=== PATIENT | female | born 1995 | race Caucasian/White ===

== ENCOUNTER 2018-07-15 20:52 | Emergency (ER) | payer OTHER ==
[2018-07-15] MEDS ORDERED: Oseltamivir 75 MG CAP ONE (23:14)
[2018-07-15] MEDS ORDERED: Acetaminophen 500 MG TAB ONE (23:14)
== END 2018-07-15 23:40 | disposition home or self-care (01) ==
LOC: MADERS 20:52
DX: J11.1 Influenza due to unidentified influenza virus with other respiratory manifestations (principal)
CPT/HCPCS: 87081; 87430; 87804; 99283

== ENCOUNTER 2019-02-14 18:48 | Emergency (ER) | payer OTHER ==
[2019-02-14 19:16] LABS: Bilirubin Negative (Negative); Blood, Urine Negative (Negative); Clarity Clear (Clear); Glucose, Urine (Dipstick) Negative (Negative); Leukocyte Negative (Negative); Nitrite Negative (Negative); Protein, Urine (Dipstick) Negative (Neg-Trace); Urobilinogen 0.2 mg/dL (Less than 2)
[2019-02-14 19:17] LABS: Pregnancy Test - Urine (BHCG) POSITIVE (Negative); Pregu Control Background? CLEAR/WHITE (CLR/WHITE); Pregu Control Bar Appear? YES (CONTROL BAR)
[2019-02-14 20:00] LABS: #Basophils 0.1 thou/uL (0.0-0.2); #Eosinphils 0.3 thou/uL (0.0-0.7); #Lymphocytes 1.7 thou/uL (1.20-3.40); #Monocytes 0.8 thou/uL (0.11-0.59); #Neutrophils 5.9 thou/uL (1.40-6.50); %Basophils 0.6 % (0.0-1.0); %Eosinophils 3.3 % (0.0-10.0); %Lymphocytes 19.1 % (21.0-51.0); %Monocytes 9.4 % (0.0-10.0); %Neutrophils 67.5 % (42.0-75.0); Mean Corpuscular HGB CONC 33.6 g/dL (32.0-36.0); Mean Corpuscular Hemoglobin 30.7 pg (27.0-31.0); Mean Corpuscular Volume 91.2 fL (78.0-98.0); Platelet Count 215 thou/uL (130-400); RBC Distribution Width 10.4 % (11.5-14.5); Red Blood Cell (RBC) Count 4.23 mill/uL (4.20-5.40); White Blood Cell (WBC) Count 8.8 thou/uL (4.8-10.8)
[2019-02-14] MEDS ORDERED: Acetaminophen 500 MG TAB ONE (20:39)
[2019-02-16 20:11] LABS: Chlamydia by PCR Not Detected (NotDetected); GC by PCR Not Detected (NotDetected)
== END 2019-02-14 20:47 | disposition short-term general hospital (02) ==
LOC: MADERS 18:48
DX: O99.89 Other specified diseases and conditions complicating pregnancy, childbirth and the puerperium (principal); R10.31 Right lower quadrant pain; Z3A.01 Less than 8 weeks gestation of pregnancy
CPT/HCPCS: 81003; 81025; 84702; 85025; 86900; 86901; 87480; 87491; 87510; 87591; 87660; 99284

== ENCOUNTER 2019-06-14 18:22 | Emergency (ER) | payer OTHER | END 2019-06-14 20:06 | disposition home or self-care (01) | LOC: MADERS 18:22 | DX: O99.89 Other specified diseases and conditions complicating pregnancy, childbirth and the puerperium (principal); M79.81 Nontraumatic hematoma of soft tissue; O99.341 Other mental disorders complicating pregnancy, first trimester; F32.9 Major depressive disorder, single episode, unspecified; Z79.899 Other long term (current) drug therapy | CPT/HCPCS: 99283 ==

== ENCOUNTER 2019-09-28 01:23 | Emergency (ER) | payer OTHER ==
[2019-09-28] MEDS ORDERED: AMOXicillin 250 MG CAP ONE (02:15)
== END 2019-09-28 02:22 | disposition home or self-care (01) ==
LOC: MADERS 01:23
DX: O99.612 Diseases of the digestive system complicating pregnancy, second trimester (principal); K02.9 Dental caries, unspecified; O99.342 Other mental disorders complicating pregnancy, second trimester; F32.9 Major depressive disorder, single episode, unspecified; Z3A.22 22 weeks gestation of pregnancy
CPT/HCPCS: 99282

== ENCOUNTER 2019-11-11 13:02 | Emergency (ER) | payer OTHER | END 2019-11-11 14:22 | disposition home or self-care (01) | LOC: MADERS 13:02 | DX: Z04.1 Encounter for examination and observation following transport accident (principal); O99.343 Other mental disorders complicating pregnancy, third trimester; F32.9 Major depressive disorder, single episode, unspecified; Z3A.28 28 weeks gestation of pregnancy; Z79.899 Other long term (current) drug therapy; V49.40XA Driver injured in collision with unspecified motor vehicles in traffic accident, initial encounter | CPT/HCPCS: 99283 ==

== ENCOUNTER 2019-12-29 16:51 | Emergency (ER) | payer OTHER | END 2019-12-29 17:31 | disposition home or self-care (01) | LOC: MADERS 16:51 | DX: K02.9 Dental caries, unspecified (principal); D68.9 Coagulation defect, unspecified; F32.9 Major depressive disorder, single episode, unspecified; Z79.01 Long term (current) use of anticoagulants | CPT/HCPCS: 99282 ==

== ENCOUNTER 2020-08-24 10:54 | Emergency (ER) | payer OTHER ==
[2020-08-24] MEDS ORDERED: Ondansetron ODT 4 MG TAB ONE (12:00)
[2020-08-24] MEDS ORDERED: hydrOXYzine 25 MG TAB ONE (12:00)
== END 2020-08-24 12:36 | disposition home or self-care (01) ==
LOC: MADERS 10:54
DX: H65.03 Acute serous otitis media, bilateral (principal); R11.2 Nausea with vomiting, unspecified
CPT/HCPCS: 96372; 99282; J1040; Q0162

== ENCOUNTER 2021-06-22 18:51 | Emergency (ER) | payer OTHER ==
[2021-06-22] MEDS ORDERED: predniSONE 20 MG TAB ONE (19:29)
== END 2021-06-22 20:00 | disposition home or self-care (01) ==
LOC: MADERS 18:51
DX: H93.12 Tinnitus, left ear (principal); R42 Dizziness and giddiness; I10 Essential (primary) hypertension
CPT/HCPCS: 99283; J7512

== ENCOUNTER 2022-04-09 08:33 | Emergency (ER) | payer OTHER ==
[2022-04-09] MEDS ORDERED: predniSONE 20 MG TAB ONE (09:00)
[2022-04-09] MEDS ORDERED: diphenhydrAMINE 25 MG CAP ONE ×2 (09:00→09:03)
== END 2022-04-09 09:12 | disposition home or self-care (01) ==
LOC: MADERS 08:33
DX: L50.9 Urticaria, unspecified (principal)
CPT/HCPCS: 99282; J7512

== ENCOUNTER 2022-09-13 16:26 | Emergency (ER) | payer OTHER | END 2022-09-13 17:15 | disposition home or self-care (01) | LOC: MADERS 16:26 | DX: K04.7 Periapical abscess without sinus (principal); Z79.899 Other long term (current) drug therapy | CPT/HCPCS: 99282 ==

== ENCOUNTER 2022-11-17 10:30 | Emergency (ER) | payer OTHER | END 2022-11-17 11:10 | disposition home or self-care (01) | LOC: MADERS 10:30 | DX: O99.512 Diseases of the respiratory system complicating pregnancy, second trimester (principal); J30.2 Other seasonal allergic rhinitis; O99.891 Other specified diseases and conditions complicating pregnancy; H93.8X2 Other specified disorders of left ear; Z3A.24 24 weeks gestation of pregnancy | CPT/HCPCS: 99282 ==

== ENCOUNTER 2022-12-14 14:12 | Emergency (ER) | payer OTHER ==
[2022-12-14] MEDS ORDERED: Sodium Chloride 0.9% 1,000 ML ONE (15:25)
[2022-12-14 15:31] LABS: #Eosinphils 0.1 thou/uL (0.0-0.7); #Lymphocytes 1.5 thou/uL (1.20-3.40); #Monocytes 0.7 thou/uL (0.11-0.59); #Neutrophils 8.9 thou/uL (1.40-6.50); %Basophils 0.3 % (0.0-1.0); %Eosinophils 1.1 % (0.0-10.0); %Lymphocytes 13.5 % (21.0-51.0); %Monocytes 5.8 % (0.0-10.0); %Neutrophils 79.3 % (42.0-75.0); Hematocrit 34.9 % (36.0-47.0); Hemoglobin 12.2 g/dL (12.0-16.0); Mean Corpuscular HGB CONC 34.9 g/dL (32.0-36.0); Mean Corpuscular Hemoglobin 33.4 pg (27.0-31.0); Mean Corpuscular Volume 95.7 fl (78.0-98.0); Mean Platelet Volume 9.7 fL (7.4-10.4); Platelet Count 196 10x3/uL (130-400); RBC Distribution Width 13.3 % (11.5-14.5); Red Blood Cell (RBC) Count 3.65 mill/uL (4.20-5.40); White Blood Cell (WBC) Count 11.2 10x3/uL (4.8-10.8)
[2022-12-14 15:45] LABS: ALT (SGPT) 17 U/L (8-55); AST (SGOT) 12 U/L (5-34); Albumin 3.8 g/dL (3.5-5.0); Alkaline Phosphatase 76 U/L (40-110); Anion Gap 17 mmol/L (10-20); BUN (Urea Nitrogen) Less than 4 mg/dL (7.0-18.7); Bilirubin, Total 0.5 mg/dL (0.2-1.2); Calc. Creatinine Clearance 0 mL/min (70-130); Calcium 9.4 mg/dL (7.8-10.44); Carbon Dioxide 19 mmol/L (22-29); Chloride 104 mmol/L (98-107); Estimated GFR 130; Globulin 3.4 g/dL (2.4-3.5); Glucose 88 mg/dL (70-105); Potassium 3.7 mmol/L (3.5-5.1); Protein, Total 7.2 g/dL (6.0-8.3); Sodium 136 mmol/L (136-145)
[2022-12-14 16:02] LABS: SARS-CoV-2 NAA Rapid Test DETECTED (NotDetected)
[2022-12-14 16:10] LABS: Bilirubin Negative (Negative); Blood, Urine Negative (Negative); Glucose, Urine (Dipstick) Negative (Negative); Ketone, Urine Trace mg/dL (Negative); Leukocyte Trace (Negative); Nitrite Negative (Negative); Protein, Urine (Dipstick) Negative (Neg-Trace); Specific Gravity, Urine 1.015 (1.005-1.030); Urobilinogen 0.2 mg/dL (Less than 2)
[2022-12-14 16:11] LABS: CAUTI Indications for Culture Pregnancy; Clarity Hazy (Clear)
[2022-12-14 16:12] LABS: Urine Culture Reflex Yes Yes
[2022-12-14 16:13] LABS: RBC/HPF 0-3 HPF (0-3)
[2022-12-14 16:14] LABS: Bacteria/HPF 1+ HPF (None Seen)
[2022-12-14 16:20] LABS: Amphetamine Not Detected (NotDetected); Barbiturates Screen Not Detected (NotDetected); Benzodiazepine Screen Not Detected (NotDetected); Cocaine Metabolite Screen Not Detected (NotDetected); Methadone Not Detected (NotDetected); Methamphetamine Not Detected (NotDetected); Opiate Screen Not Detected (NotDetected); Oxycodone Screen Not Detected (NotDetected); Phencyclidine (PCP) Not Detected (NotDetected); THC/Cannabinoid Screen Not Detected (NotDetected); Tricyclic Screen Not Detected (NotDetected)
[2022-12-14] MEDS ORDERED: Acetaminophen 325 MG TAB ONE (17:16)
== END 2022-12-14 17:51 | disposition short-term general hospital (02) ==
LOC: MADERS 14:12
DX: O98.512 Other viral diseases complicating pregnancy, second trimester (principal); U07.1 COVID-19; O16.2 Unspecified maternal hypertension, second trimester; O99.891 Other specified diseases and conditions complicating pregnancy; R00.0 Tachycardia, unspecified; Z3A.20 20 weeks gestation of pregnancy
CPT/HCPCS: 80053; 80306; 81001; 83880; 84443; 84484; 85025; 87086; 93005; 96360; J7050

== ENCOUNTER 2023-04-12 16:33 | Emergency (ER) | payer OTHER | END 2023-04-12 17:50 | disposition home or self-care (01) | LOC: MADERS 16:33 | DX: H83.02 Labyrinthitis, left ear (principal) | CPT/HCPCS: 99283 ==

== ENCOUNTER 2023-04-25 18:45 | Emergency (ER) | payer OTHER ==
[~2023-04-25 18:45] MED LIST: Sodium Chloride 0.9% 1,000 ML BAG ONE
[2023-04-25] MEDS ORDERED: Promethazine HCl 25 MG/ML VIAL ONE (19:52)
[2023-04-25 20:14] LABS: #Basophils 0.1 thou/uL (0.0-0.2); #Eosinphils 0.2 thou/uL (0.0-0.7); #Lymphocytes 2.4 thou/uL (1.20-3.40); #Monocytes 0.6 thou/uL (0.11-0.59); #Neutrophils 12.8 thou/uL (1.40-6.50); %Basophils 0.5 % (0.0-1.0); %Eosinophils 1.2 % (0.0-10.0); %Lymphocytes 14.7 % (21.0-51.0); %Monocytes 3.8 % (0.0-10.0); %Neutrophils 79.8 % (42.0-75.0); Hematocrit 44.8 % (36.0-47.0); Hemoglobin 14.7 g/dL (12.0-16.0); Mean Corpuscular HGB CONC 32.9 g/dL (32.0-36.0); Mean Corpuscular Hemoglobin 30.4 pg (27.0-31.0); Mean Corpuscular Volume 92.3 fl (78.0-98.0); Mean Platelet Volume 8.4 fL (7.4-10.4); Platelet Count 310 10x3/uL (130-400); RBC Distribution Width 13.3 % (11.5-14.5); Red Blood Cell (RBC) Count 4.85 mill/uL (4.20-5.40)
[2023-04-25 20:32] LABS: ALT (SGPT) 42 U/L (8-55); AST (SGOT) 17 U/L (5-34); Albumin 4.9 g/dL (3.5-5.0); Alkaline Phosphatase 73 U/L (40-110); Anion Gap 21 mmol/L (10-20); BUN (Urea Nitrogen) 11 mg/dL (7.0-18.7); Bilirubin, Total 0.9 mg/dL (0.2-1.2); Calc. Creatinine Clearance 0 mL/min (70-130); Calcium 10.1 mg/dL (7.8-10.44); Carbon Dioxide 22 mmol/L (22-29); Chloride 101 mmol/L (98-107); Estimated GFR 92; Globulin 3.2 g/dL (2.4-3.5); Glucose 111 mg/dL (70-105); Potassium 3.8 mmol/L (3.5-5.1); Protein, Total 8.1 g/dL (6.0-8.3); Sodium 140 mmol/L (136-145)
[2023-04-25 20:46] LABS: Bacteria/HPF 2+ HPF (None Seen); Bilirubin Negative (Negative); Blood, Urine Large (Negative); CAUTI Indications for Culture Alt mental st,lethar; Clarity Turbid (Clear); Glucose, Urine (Dipstick) Negative (Negative); Ketone, Urine Trace mg/dL (Negative); Leukocyte Moderate (Negative); Nitrite Negative (Negative); Protein, Urine (Dipstick) 100 mg/dL (Neg-Trace); RBC/HPF Greater than 50 HPF (0-3); Specific Gravity, Urine 1.022 (1.002-1.036); Squamous Epithelial 21-50 HPF (0-3); Urobilinogen 0.2 mg/dL (Less than 2); WBC/HPF Greater than 50 HPF (0-3); pH, Urine 6.5 (5.0-9.0)
[2023-04-25 20:47] LABS: Pregnancy Test - Urine (BHCG) Negative (Negative); Pregu Control Background? CLEAR/WHITE (CLR/WHITE); Pregu Control Bar Appear? YES (CONTROL BAR); Specific Gravity 1.022 (1.002-1.036); Urine Culture Reflex Yes Yes
== END 2023-04-25 21:20 | disposition home or self-care (01) ==
LOC: MADERS 18:45
DX: H83.09 Labyrinthitis, unspecified ear (principal); E86.0 Dehydration
CPT/HCPCS: 80053; 81001; 81025; 85025; 87086; 93005; 96365; J2550; J7050

== ENCOUNTER 2023-05-05 13:58 | Emergency (ER) | payer OTHER ==
[~2023-05-05 13:58] MED LIST changes: +Iopamidol 370 76% 100 ML VIAL ONE; -Sodium Chloride 0.9% 1,000 ML BAG ONE
[2023-05-05 15:05] LABS: #Eosinphils 0.1 thou/uL (0.0-0.7); #Lymphocytes 1.6 thou/uL (1.20-3.40); #Monocytes 0.6 thou/uL (0.11-0.59); #Neutrophils 10.7 thou/uL (1.40-6.50); %Basophils 0.3 % (0.0-1.0); %Eosinophils 0.8 % (0.0-10.0); %Lymphocytes 12.3 % (21.0-51.0); %Monocytes 4.4 % (0.0-10.0); %Neutrophils 82.1 % (42.0-75.0); Hematocrit 39.8 % (36.0-47.0); Hemoglobin 12.9 g/dL (12.0-16.0); Mean Corpuscular HGB CONC 32.5 g/dL (32.0-36.0); Mean Corpuscular Hemoglobin 30.4 pg (27.0-31.0); Mean Corpuscular Volume 93.7 fl (78.0-98.0); Mean Platelet Volume 8.9 fL (7.4-10.4); Platelet Count 215 10x3/uL (130-400); Red Blood Cell (RBC) Count 4.24 mill/uL (4.20-5.40)
[2023-05-05 15:10] LABS: BHCG - Serum Negative (NEGATIVE); Pregs Control Background? CLEAR/WHITE (CLR/WHITE); Pregs Control Bar Appear? YES (CONTROL BAR)
[2023-05-05 15:15] LABS: Anion Gap 17 mmol/L (10-20); BUN (Urea Nitrogen) 9 mg/dL (7.0-18.7); Calc. Creatinine Clearance 0 mL/min (70-130); Calcium 9.7 mg/dL (7.8-10.44); Carbon Dioxide 25 mmol/L (22-29); Chloride 102 mmol/L (98-107); Estimated GFR 110; Glucose 90 mg/dL (70-105); Potassium 3.6 mmol/L (3.5-5.1); Sodium 140 mmol/L (136-145)
== END 2023-05-05 17:15 | disposition home or self-care (01) ==
LOC: MADERS 13:58
DX: M54.6 Pain in thoracic spine (principal); K76.9 Liver disease, unspecified; V43.52XA Car driver injured in collision with other type car in traffic accident, initial encounter
CPT/HCPCS: 70450; 72125; 74177; 80048; 84703; 85025; Q9967

== ENCOUNTER 2023-11-02 18:43 | Emergency (ER) | payer OTHER, MEDICAID | END 2023-11-02 19:55 | disposition home or self-care (01) | LOC: MADERS 18:43 | DX: H92.02 Otalgia, left ear (principal) | CPT/HCPCS: 99283 ==

== ENCOUNTER 2023-11-24 10:50 | Emergency (ER) | payer MEDICAID, OTHER | END 2023-11-24 11:33 | disposition home or self-care (01) | LOC: MADERS 10:50 | DX: H92.02 Otalgia, left ear (principal) | CPT/HCPCS: 99282 ==

== ENCOUNTER 2024-01-19 10:48 | Emergency (ER) | payer MEDICAID, OTHER ==
[2024-01-19] MEDS ORDERED: Ketorolac Tromethamine 60 MG/2 ML VIAL ONE (11:50)
[2024-01-19] MEDS ORDERED: Lidocaine 4% Patch ONE (11:50)
[2024-01-19 12:10] LABS: Bilirubin Negative (Negative); Blood, Urine Negative (Negative); Clarity Slightly Cloudy (Clear); Glucose, Urine (Dipstick) Negative (Negative); Ketone, Urine Negative (Negative); Leukocyte Moderate (Negative); Nitrite Negative (Negative); Protein, Urine (Dipstick) Negative (Neg-Trace); Urobilinogen 0.2 mg/dL (Less than 2)
[2024-01-19 12:13] LABS: Pregnancy Test - Urine (BHCG) Negative (Negative); Pregu Control Background? CLEAR/WHITE (CLR/WHITE); Pregu Control Bar Appear? YES (CONTROL BAR); Specific Gravity 1.025 (1.002-1.036)
[2024-01-19 12:20] LABS: RBC/HPF 0-3 HPF (0-3)
[2024-01-19 12:21] LABS: Bacteria/HPF 3+ HPF (None Seen); CAUTI Indications for Culture Pelvic or flank pain
[2024-01-19 12:22] LABS: Urine Culture Reflex No No
== END 2024-01-19 12:44 | disposition home or self-care (01) ==
LOC: MADERS 10:48
DX: M54.50 Low back pain, unspecified (principal)
CPT/HCPCS: 81001; 81025; 96372; 99283; J1885

== ENCOUNTER 2024-02-01 16:49 | Emergency (ER) | payer MEDICAID ==
[2024-02-01] MEDS ORDERED: Promethazine HCl 25 MG/ML VIAL ONE (18:03)
[2024-02-01] MEDS ORDERED: Sodium Chloride 0.9% 1,000 ML ONE ×2 (18:03→19:46)
[2024-02-01 18:30] LABS: ALT (SGPT) 12 U/L (8-55); AST (SGOT) 12 U/L (5-34); Albumin 4.5 g/dL (3.5-5.0); Alkaline Phosphatase 80 U/L (40-110); Anion Gap 17 mmol/L (10-20); BUN (Urea Nitrogen) 10 mg/dL (7.0-18.7); Band 3 % (5-11); Bilirubin, Total 0.8 mg/dL (0.2-1.2); Calc. Creatinine Clearance 0 mL/min (70-130); Carbon Dioxide 20 mmol/L (22-29); Chloride 108 mmol/L (98-107); Estimated GFR 100; Globulin 3.4 g/dL (2.4-3.5); Glucose 95 mg/dL (70-105); Hematocrit 40.6 % (36.0-47.0); Hemoglobin 13.8 g/dL (12.0-16.0); Lymphocytes 9 % (21-51); MDiff Complete? YES; Mean Corpuscular HGB CONC 34.1 g/dL (32.0-36.0); Mean Corpuscular Hemoglobin 32.6 pg (27.0-31.0); Mean Corpuscular Volume 95.8 fl (78.0-98.0); Mean Platelet Volume 9.4 fL (7.4-10.4); Monocytes 1 % (0-10); Neutrophil 76 % (42-75); Platelet Count 249 10x3/uL (130-400); Potassium 4.1 mmol/L (3.5-5.1); Protein, Total 7.9 g/dL (6.0-8.3); RBC Distribution Width 12.1 % (11.5-14.5); Red Blood Cell (RBC) Count 4.24 mill/uL (4.20-5.40); Sodium 141 mmol/L (136-145); White Blood Cell (WBC) Count 8.3 10x3/uL (4.8-10.8)
[2024-02-01 18:31] LABS: Manual Diff?? YES; Platelet Adequacy Comment Appears Adequate; RBC Morph Comment Within Normal Limits; Reactive Lymphocytes 11 % (0-10)
[2024-02-01 19:26] LABS: Pregnancy Test - Urine (BHCG) Negative (Negative); Pregu Control Background? CLEAR/WHITE (CLR/WHITE); Pregu Control Bar Appear? YES (CONTROL BAR); Specific Gravity 1.025 (1.002-1.036)
[2024-02-01 19:27] LABS: Bacteria/HPF Rare-Few HPF (None Seen); Bilirubin Negative (Negative); Blood, Urine Negative (Negative); CAUTI Indications for Culture Pregnancy; Clarity Hazy (Clear); Glucose, Urine (Dipstick) Negative (Negative); Ketone, Urine Negative (Negative); Leukocyte Trace (Negative); Mucous/LPF 2+ LPF (<2+); Nitrite Negative (Negative); Protein, Urine (Dipstick) Trace mg/dL (Neg-Trace); RBC/HPF None Seen HPF (0-3); Specific Gravity, Urine 1.025 (1.005-1.030); Urobilinogen 0.2 mg/dL (Less than 2); pH, Urine 6.5 (5.0-9.0)
[2024-02-01 19:28] LABS: Urine Culture Reflex Yes Yes
[2024-02-01 19:36] LABS: Amphetamine Not Detected (NotDetected); Barbiturates Screen Not Detected (NotDetected); Benzodiazepine Screen Not Detected (NotDetected); Cocaine Metabolite Screen Not Detected (NotDetected); Methadone Not Detected (NotDetected); Methamphetamine Not Detected (NotDetected); Opiate Screen Not Detected (NotDetected); Oxycodone Screen Not Detected (NotDetected); Phencyclidine (PCP) Not Detected (NotDetected); THC/Cannabinoid Screen Not Detected (NotDetected); Tricyclic Screen Not Detected (NotDetected)
== END 2024-02-01 20:35 | disposition home or self-care (01) ==
LOC: MADERS 16:49
DX: A09 Infectious gastroenteritis and colitis, unspecified (principal); H81.09 Meniere's disease, unspecified ear; E86.0 Dehydration
CPT/HCPCS: 36415; 80053; 80306; 81001; 81025; 85025; 87086; 96361; 96374; J2550; J7030